=== PATIENT | male | born 1990 | race Caucasian/White ===

== ENCOUNTER 2021-12-02 08:03 | Emergency (ER) | payer OTHER, SELFPAY ==
--- NOTE | 2021-12-02 08:07 | ED.URI ---
HPI - URI/Sore Throat General Chief Complaint: Upper Respiratory Infection Stated Complaint: Chills/Sore Throat Time Seen by Provider: 12/02/21 08:07 Source: patient and RN notes reviewed History of Present Illness HPI Narrative: Patient is a 31-year-old male who presents the urgent care with complaints of chills and sweats. Patient also states that he woke up with a mild sore throat this morning. Patient's major complaint is that his son was up all night and he got no sleep. Patient states that he believes his symptoms are related and needs a work note. Denies any known fevers, nausea, vomiting. Denies of any known contact to strep, COVID or influenza. No other acute complaints. No acute distress noted. Patient read the plan of care. Some parts of this dictation were generated by voice recognition software and may contain typographical and/or grammatical inaccuracies. Related Data Allergies Allergy/AdvReac Type Severity Reaction Status Date / Time No Known Allergies Allergy Verified 10/06/19 10:14 Review of Systems Review of Systems: CONSTITUTIONAL: Reports of chills and sweats EYES: Denies visual changes, redness, or discharge. ENT: Denies rhinorrhea, congestion, otalgia. Reports of sore throat CARDIOVASCULAR: Denies chest pain, palpitations, or edema. RESPIRATORY: Denies cough or dyspnea. GASTROINTESTINAL: Denies abdominal pain, nausea, vomiting, or diarrhea. GENITOURINARY: Denies dysuria or hematuria. SKIN: Denies rash or itching. MUSCULOSKELETAL: Denies back pain, joint pain. Reports body aches All other systems reviewed are negative, except as documented in HPI. PMFSH Past Medical History Medical History (Updated 12/02/21 @ 08:31 by ZURDO Malave) No active medical problems Social History Social History (Updated 10/06/19 @ 10:24 by Grace Hinojosa) Tobacco type: smokeless tobacco Comments At the time of my signature, I reviewed and agree with the nursing past medical, surgical, social, and family history. There is no relevant family history pertinent to the patient complaint. Exam Narrative: GENERAL: This is a well-nourished, well-developed patient, in no apparent distress. HEAD: normocephalic, atraumatic. EYES: PERRL. Sclera clear/white. Vision is grossly intact. EARS: External ears normal, auditory canals clear and without drainage. Moderate impacted cerumen bilaterally, unable to visualize TMs. Hearing grossly intact. NOSE: External nose normal with no obvious nasal discharge, nares without redness, no rhinorrhea. THROAT: Mucous membranes moist, moderate erythema noted posterior pharynx with mild bilateral tonsillar edema without exudate or ulceration. Moderate postnasal drainage. NECK: Neck supple CARDIOVASCULAR: Regular rate and rhythm without murmurs, gallops, or rubs. RESPIRATORY: Clear to auscultation. Breath sounds equal bilaterally. No wheezes, rales, or rhonchi. SKIN: warm, intact with no suspicious lesions or rash, good texture and turgor. NEURO: awake, alert, and oriented to person, place and time. There were no obvious focal neurologic abnormalities. EXTREMITIES: No clubbing, cyanosis, or edema. Course Course Level of Care: Express Care Visit Vital Signs Vital signs: Vital Signs Temperature 98.3 F 12/02/21 08:16 Pulse Rate 101 H 12/02/21 08:16 Respiratory Rate 16 12/02/21 08:16 Blood Pressure 162/79 H 12/02/21 08:16 Pulse Oximetry 99 12/02/21 08:16 Temperature 98.3 F 12/02/21 08:16 Pulse Rate 101 H 12/02/21 08:16 Respiratory Rate 16 12/02/21 08:16 Blood Pressure 162/79 H 12/02/21 08:16 Pulse Oximetry 99 12/02/21 08:16 Reviewed-patient is informed that they may have pre-hypertension or hypertension based on a blood pressure reading in the department. I recommend the patient call the primary care provider listed on their discharge instructions or a physician of their choice this week to arrange follow-up for further evaluation of possible
[2021-12-02 08:16] VITALS: BP 162/79; PULSE 101; RESP 16; TEMP 36.8; O2SAT 99
== END 2021-12-02 08:37 | disposition home or self-care (01) ==
PROVIDERS: Emergency Provider Nurse Practitioner Family
DX: J02.9 Acute pharyngitis, unspecified (principal)
CPT/HCPCS: 87081; 99212; G0463

== ENCOUNTER 2022-07-22 08:25 | Emergency (ER) | payer OTHER, SELFPAY ==
[2022-07-22 08:34] VITALS: BP 154/91; PULSE 85; RESP 16; TEMP 36.7; O2SAT 99
--- NOTE | 2022-07-22 08:59 | ED.URI ---
HPI - URI/Sore Throat General Chief Complaint: Upper Respiratory Infection Stated Complaint: Sore Throat Time Seen by Provider: 07/22/22 08:55 Source: patient, RN notes reviewed and old records reviewed Mode of arrival: ambulatory Limitations: no limitations History of Present Illness HPI Narrative: 32-year-old male presents to [facility] with complaints of 3-day history of sore throat which is tender and sore he does also have some postnasal drainage and cough. Patient states that he has taken some Tylenol and also has been using OTC DayQuil and NyQuil for his symptoms. Patient has enlarged tonsils with redness and swelling, uvula is midline but red and enlarged also, with history of past strep throat infections. Patient denies any acute difficulty with his breathing or swallowing but does state increased pain with swallowing. MD elicited complaint: cough and sore throat Onset (ago): day(s) (3) Related Data Allergies Allergy/AdvReac Type Severity Reaction Status Date / Time No Known Allergies Allergy Verified 10/06/19 10:14 Review of Systems Review of Systems: CONSTITUTIONAL: Denies malaise, chills, sweats, reports he has felt feverish EYES: Denies visual changes, redness, or discharge. ENT: Reports rhinorrhea, congestion, sinus pain,no otalgia, does report sore throat. CARDIOVASCULAR: Denies chest pain, palpitations, or edema. RESPIRATORY: Reports cough.? Denies dyspnea. GASTROINTESTINAL: Denies abdominal pain, nausea, vomiting, diarrhea SKIN: Denies rash or itching. MUSCULOSKELETAL: Denies myalgia. NEUROLOGIC: Reports headache. All systems reviewed & are unremarkable except as noted in HPI and below PMFSH Past Medical History Medical History (Updated 07/23/22 @ 07:56 by Elidia Cueto NP) COVID-19 No active medical problems Strep throat Social History Social History (Updated 10/06/19 @ 10:24 by Grace Hinojosa) Tobacco type: smokeless tobacco Comments At time of signature, agree with nursing past medical, surgical, social and family history. There is no relevant family history pertinent to the presenting complaint Exam Narrative: GENERAL: Well-appearing, well-nourished, and in no acute distress. HEAD: Normocephalic EYES: PERRLA, conjunctivae clear ENT: Nares clear, turbinates edematous and erythematous, clear discharge. Mucous membranes moist. TM pearly peterson with dull light reflex bilaterally; no tragal tenderness. Oropharynx erythematous without lesions. Tonsils enlarged and without exudate, no drooling, no hoarseness, no trismus, uvula midline and swollen NECK: Supple. lymphadenopathy CHEST: Clear to auscultation, breath sounds equal. No wheezing, rhonchi, rales, or stridor. No respiratory distress, speaks in full sentences. HEART: Regular rate and rhythm. No murmur heard. SKIN: Warm, dry, no rash. NEURO: Alert and oriented x3. PSYCH: Normal mood and affect Course Course Emergency Course: Patient is aware of diagnosis, understands and agrees to treatment plan.? Anticipatory guidance given.? Patient agrees to follow-up as directed and is aware of reasons to seek care at the emergency department. Portions of this record may have been created with voice recognition software Level of Care: Express Care Visit Vital Signs Vital signs: Vital Signs Temperature 36.7 C 07/22/22 08:34 Pulse Rate 85 07/22/22 08:34 Respiratory Rate 16 07/22/22 08:34 Blood Pressure 154/91 H 07/22/22 08:34 Pulse Oximetry 99 07/22/22 08:34 Oxygen Delivery Room Air 07/22/22 08:34 Temperature 36.1 C L 07/22/22 09:17 Pulse Rate 141 H 07/22/22 09:17 Respiratory Rate 20 07/22/22 09:17 Blood Pressure 154/91 H 07/22/22 08:34 Pulse Oximetry 98 07/22/22 09:17 Oxygen Delivery Room Air 07/22/22 09:17 Reviewed MDM - URI/Sore Throat MDM Narrative Medical decision making narrative: Differential diagnosis considered: Ray virus, strep pharyngitis, allergic
[2022-07-22 09:17] VITALS: PULSE 141; RESP 20; TEMP 36.1; O2SAT 98
== END 2022-07-22 09:15 | disposition home or self-care (01) ==
PROVIDERS: Emergency Provider Registered Nurse
DX: J03.90 Acute tonsillitis, unspecified (principal); J06.9 Acute upper respiratory infection, unspecified; Z86.16 Personal history of COVID-19
CPT/HCPCS: 87081; 87880; 99213; G0463